=== PATIENT | female | born 1995 | race Two or more races ===

== ENCOUNTER 2021-12-30 01:11 | Inpatient (IN) | payer OTHER ==
[~2021-12-30] VITALS: Ht 152.4 cm; Wt 63.5 kg
--- NOTE | 2021-12-30 01:36 | NUR ---
COVID SWAB DONE AND SENT TO LAB
--- NOTE | 2021-12-30 01:39 | NUR ---
ER RECREATION LEADER @ BEDSIDE
--- NOTE | 2021-12-30 01:39 | NUR ---
SPOKE TO ROHIT AT POISON CONTROL WITH THE FOLLOWING RECOMMENDATIONS. RISK FOR SEIZURE >>>BENZO AND SEIZURE ORECAUTION RISK FOR QRS AND QT PROLONG>>> HOURLY EKG X 4-5 HOURS RISK FOR HYPOTENSION >>> FLUID NEEDS AT LEAST [address] HAWKINS MADE AWARE
[2021-12-30] MEDS ORDERED: ACTIVATED CHARCOAL 25 GM/120 ML TUBE ONE ×2 (01:45→01:52)
[2021-12-30] MEDS ORDERED: LORAZEPAM INJ 2 MG/ML VIAL ONE (01:46)
[2021-12-30] MEDS: ACTIVATED CHARCOAL 25 GM/120 ML TUBE PO ONE ×2 (01:54→02:00)
[2021-12-30] MEDS ORDERED: LORAZEPAM INJ 2 MG/ML VIAL IV ONE (02:00)
[2021-12-30] MEDS ORDERED: IV NS 0.9% 1,000 ML IV ONE (02:00)
--- NOTE | 2021-12-30 02:06 | NUR ---
NO BOWEL IRRIGATION NEEDED PER NIYA AT POISON CONTROL. Na BICAR FOR TREATMENT OF QRS PROLONGATION
--- NOTE | 2021-12-30 02:08 | NUR ---
URINE COLLECTED AND SENT TO LAB
[2021-12-30 02:15] LABS: BASOPHILS % (AUTO) 0.7 % (0.0-2.0); EOSINOPHILS % (AUTO) 0.9 % (0.0-6.0); HEMATOCRIT 41 % (33-45); HEMOGLOBIN 13.5 g/dL (11.5-14.8); LYMPHOCYTES # (AUTO) 1.5 K/uL (0.8-4.8); LYMPHOCYTES % (AUTO) 22.5 % (20.0-44.0); MEAN CORPUSCULAR HGB CONC 33 g/dl (31.0-36.0); MEAN CORPUSCULAR VOLUME 92 fL (82-100); MONOCYTES # (AUTO) 0.8 K/uL (0.1-1.30); MONOCYTES % (AUTO) 11.2 % (2.0-12.0); NEUTROPHILS # (AUTO) 4.4 K/uL (1.8-8.9); NEUTROPHILS % (AUTO) 64.7 % (43.0-81.0); PLATELET COUNT (AUTO) 313 K/uL (150-450); RED BLOOD CELL COUNT(AUTO) 4.47 MIL/uL (4.0-5.2); WHITE BLOOD COUNT (AUTO) 6.8 K/uL (4.3-11.0)
[2021-12-30 02:27] LABS: CALCIUM, SERUM 9.1 mg/dL (8.5-10.1); CREATININE 0.9 mg/dL (0.6-1.3); POTASSIUM 3.6 mmol/L (3.5-5.1)
[2021-12-30 02:36] LABS: ALBUMIN 4.1 g/dL (3.4-5.0); BILIRUBIN,DIRECT 0.1 mg/dL (0.0-0.2); BILIRUBIN,TOTAL 0.5 mg/dL (0.2-1.0); TOTAL PROTEIN, SERUM 7.8 g/dL (6.4-8.2)
[2021-12-30 03:08] LABS: BILIRUBIN,URINE NEGATIVE (NEGATIVE); COLOR,URINE YELLOW (YELLOW); LEUKOCYTE ESTERASE ,URINE NEGATIVE (NEGATIVE); NITRITE, URINE NEGATIVE (NEGATIVE); PROTEIN,URINE NEGATIVE (NEGATIVE); UGLUCOSE NEGATIVE (NEGATIVE); UROBILINOGEN,URINE 0.2 EU/dL (0.2)
--- NOTE | 2021-12-30 03:11 | NUR ---
AYOUB EPRP PAGED PER DR HAWKINS.
--- NOTE | 2021-12-30 05:00 | NUR ---
PATIENT AWAKE AND ALLERT, WITH BYFRIEND AT BEDSIDE. NO COMPLAINTS AT THIS TIME.
--- NOTE | 2021-12-30 07:30 | NUR ---
RECEVED PT FROM CARLOS ZIEGLER AWAKE uncoohernt fallow commend respiration spont and easy BOYFRIND AT BED
[2021-12-30] MEDS ORDERED: ONDANSETRON HCL/PF 4 MG/2 ML VIAL IVP PRN (08:00)
[2021-12-30] MEDS: PANTOPRAZOLE 40 MG TABLET.DR PO SCH (08:00)
[2021-12-30] MEDS ORDERED: MAG HYDROX/AL HYDROX/SIMETH 30 ML UDC PO PRN (08:00)
[2021-12-30] MEDS ORDERED: LORAZEPAM INJ 2 MG/ML VIAL IV PRN (08:00)
[2021-12-30] MEDS ORDERED: ACETAMINOPHEN 325 MG TABLET PO PRN (08:00)
--- NOTE | 2021-12-30 08:17 | NUR ---
PT ASLEEPY NO SOB
[2021-12-30] MEDS ORDERED: NORG1TAB10 PO (08:34)
[2021-12-30] MEDS ORDERED: BUPR75TA21 PO (08:34)
--- NOTE | 2021-12-30 08:55 | NUR ---
[facility] FOR [facility] FLOOR BED HOSPITLIST PROVIDER HERE AT BED
--- NOTE | 2021-12-30 10:01 | NUR ---
[facility] BED 325-2 RADHA ZIEGLER
--- NOTE | 2021-12-30 10:20 | NUR ---
RN NOTES RECEIVED REPORT FROM FIBI FROM ER AT 1020 AM.
--- NOTE | 2021-12-30 10:25 | NUR ---
HAND OFF ANI. CESAR ZIEGLER TO ROOM 325-2 VIA NAKIA HOWE BY SITTER ONE TO ONE SITSHARLA
--- NOTE | 2021-12-30 10:30 | NUR ---
RELATIONS LIAISON NOTES RECEIVED PATIENT FROM ER WITH NIK. PATIENT IS ALERT AND ORIENTED TIMES 1 . BOYFRIEND WITH PATIENT. NO PAIN NOTED. NO SOB NOTED. NO DISTRESS NOTED. IV ACCESS ON THE LEFT HAND INTACT. ALL THE BELONGINGS ACCOUNTED AND SIGNED FOR. VITAL SIGNS IN NORMAL RANGES. WILL CONTINUE TO MONITOR.
[2021-12-30] MEDS: IV NS 0.9% 1,000 ML IV PRN (10:56)
--- NOTE | 2021-12-30 18:59 | NUR ---
NUMERICAL ANALYSIS GROUP MANAGER CLOSING NOTES PATIENT AWAKE IN BED. NO PAIN NOTED. NO SOB NOTED. NO DISTRESS NOTED. BOYFRIEND AT THE BED SIDE. IV ACCESS ON THE L UPPER ARM GAUGE 22 INTACT RUNNING NS AT 75 ML/HR. PATIENT MORE ALERT THAN MORNING. AMBULATES WITH ASSISTANCE TO THE BATHROOM. ALL DUE MEDS GIVEN ORDERED. ALL SAFETY MEASURES IN PLACE. BED LOCKED IN THE LOWEST POSITION. CALL LIGHT AND TABLE IN REACH. PADDED SIDE RAILS FOR SEIZURE PRECAUTION. ON TELE MONITOR READING SR 90. WILL ENDORSE FOR EMILY.
--- NOTE | 2021-12-30 19:15 | NUR ---
RN OPENING NOTE RECEIVED PT IN BED AWAKE A/OX4. BOYFRIEND AT BEDSIDE. SITTER AT BEDSIDE. NO SIGNS OF RESPIRATORY DISTRESS OR SOB NOTED. NO C/O OF PAIN AT THIS TIME. RESTING COMFORTABLY. TELE READING SR. IV IN SEVERIANO 22G INFUSING NS AT 75ML/HR. SAFETY CHECKS IN PLACE: BED LOCKED, BED IN LOWEST POSITION, CALL LIGHT WITHIN REACH. WILL CONT PLAN OF CARE.
[2021-12-31 01:05] VITALS: BP 107/72
[2021-12-31] MEDS: IV NS 0.9% 1,000 ML IV PRN (01:51)
--- NOTE | 2021-12-31 06:33 | NUR ---
RN CLOSING NOTE, PT IN BED RESTING COMFORTABLY. A/OX4, CAN MAKE NEEDS KNOWN. PT CALM AND RELAXED. BOYFRIEND AT BEDSIDE. NO SIGNS OF RESPIRATORY DISTRESS OR SOB NOTED. TELE READING SR. IV SEVERIANO 22G INFUSING 75ML/HR OF NS. NO SIGNS OF SEIZURE ACTIVITY. SIDE RAILS PADDED FOR SAFETY. ALL NEEDS MET, ALL SCHEDULE MEDS GIVEN. SAFETY CHECKS IN PLACE: BED LOCKED, BED IN LOWEST POSITION, SIDE RAILS UP X2, CALL LIGHT WITHIN REACH. WILL ENDORSE TO DAY SHIFT NURSE FOR EMILY
[2021-12-31 06:40] LABS: BASOPHILS % (AUTO) 0.3 % (0.0-2.0); EOSINOPHILS % (AUTO) 0.4 % (0.0-6.0); HEMATOCRIT 37 % (33-45); HEMOGLOBIN 12.1 g/dL (11.5-14.8); LYMPHOCYTES # (AUTO) 1.1 K/uL (0.8-4.8); MEAN CORPUSCULAR HGB CONC 33 g/dl (31.0-36.0); MEAN CORPUSCULAR VOLUME 92 fL (82-100); MONOCYTES # (AUTO) 0.7 K/uL (0.1-1.30); NEUTROPHILS # (AUTO) 5.2 K/uL (1.8-8.9); NEUTROPHILS % (AUTO) 73.3 % (43.0-81.0); PLATELET COUNT (AUTO) 270 K/uL (150-450); RED BLOOD CELL COUNT(AUTO) 4.01 MIL/uL (4.0-5.2); WHITE BLOOD COUNT (AUTO) 7.1 K/uL (4.3-11.0)
[2021-12-31 07:02] LABS: CALCIUM, SERUM 8.8 mg/dL (8.5-10.1); CREATININE 0.9 mg/dL (0.6-1.3); MAGNESIUM 2.1 mg/dL (1.8-2.4); PHOSPHORUS 3.6 mg/dL (2.5-4.9); POTASSIUM 3.3 mmol/L (3.5-5.1)
--- NOTE | 2021-12-31 07:45 | NUR ---
RN OPENING NOTE PATIENT AWAKE IN BED RESTING. A/O X 4. BOYFRIEND AT BEDSIDE. NO PAIN NOTED AT THIS TIME. ON ROOM AIR, NO DISTRESS OR SHORTNESS OF BREATH NOTED. IV ACCESS SEVERIANO #22G, INTACT, PATENT AND FLUSHING WELL. FALL AND SAFETY MEASURES IN PLACE, BED IN LOW AND LOCK POSITION, CALL LIGHT AND TABLE WITHIN EASY REACH, SIDE RAILS UP X2. WILL CONTINUE TO MONITOR.
[2021-12-31 08:00] VITALS: BP 98/55
[2021-12-31] MEDS ORDERED: POTASSIUM CHLORIDE 20 MEQ TAB.PRT.SR PO ONE (08:00)
[2021-12-31] MEDS: PANTOPRAZOLE 40 MG TABLET.DR PO SCH (08:32)
[2021-12-31 16:00] VITALS: BP 119/76
--- NOTE | 2021-12-31 17:00 | NUR ---
RN JUN CANO FROM [place] CALLED SHE WAS REQUESTING TO PLEASE FAX PATIENT'S CRISIS TEAM CONSULT, FAX WAS SENT.
--- NOTE | 2021-12-31 17:39 | NUR ---
RN NOTE PATIENT KEPT COMPLAINING ABOUT HER IV, COMPLAINED THAT IT WAS PAINFUL. IV WAS REMOVED, PATIENT REFUSED TO GET A NEW IV, MULTIPLE ATTEMPTS WERE MADE.
--- NOTE | 2021-12-31 18:49 | NUR ---
RN CLOSING NOTE PATIENT AWAKE IN BED RESTING. A/O X 4. FAMILY AT BEDSIDE. NO PAIN NOTED AT THIS TIME. ON ROOM AIR, NO DISTRESS OR SHORTNESS OF BREATH NOTED. NO IV ACCESS, PATIENT REFUSED. FALL AND SAFETY MEASURES IN PLACE, BED IN LOW AND LOCK POSITION, CALL LIGHT AND TABLE WITHIN EASY REACH, SIDE RAILS UP X2. WILL ENDORSE TO SUGAR CONTROLLER.
--- NOTE | 2021-12-31 19:30 | NUR ---
RN OPENING NOTE PATIENT SITTING UP AT THE BED, FAMILY AT BEDSIDE. PATIENT ALSO HAS A 1:1 SITTER PRESENT AT BEDSIDE. PATIENT ON A 5150 HOLD D/T SI. PATIENT IS ON RA TOLERATING WELL, BREATHING EVEN AND UNLABORED. PATIENT DOES NOT REPORT ANY PAIN OR APPARENT DISTRESS. PATIENT CALM AT THIS TIME, ALTHOUGH SHE IS TEARY EYED. SAFETY MEASURES IN PLACE: BED LOCKED AND IN LOWEST POSITION, CALL LIGHT WITHIN REACH, SIDE RAILS UP.
[2021-12-31 20:00] VITALS: BP 132/67
--- NOTE | 2022-01-01 06:52 | NUR ---
RN CLOSING NOTE PATIENT IN BED, EYES CLOSED, EASILY AWAKENED. PATIENT HAS A 1:1 SITTER PRESENT AT BEDSIDE. PATIENT ON A 5150 HOLD D/T SI. PATIENT IS ON RA TOLERATING WELL, BREATHING EVEN AND UNLABORED. PATIENT DOES NOT REPORT ANY PAIN OR APPARENT DISTRESS. PATIENT CALM THROUGHOUT THE SHIFT. SAFETY MEASURES IN PLACE: BED LOCKED AND IN LOWEST POSITION, CALL LIGHT WITHIN REACH, SIDE RAILS UP. ALL NEEDS MET AND ATTENDED. ALL ORDERS CARRIED OUT. WILL ENDORSE TO DAY SHIFT NURSE FOR EMILY
--- NOTE | 2022-01-01 07:30 | NUR ---
MS RN OPENING NOTES PATIENT AWAKE IN BED. NO PAIN NOTED. NO SOB NOTED. NO DISTRESS NOTED. PATIENT REFUSED IV . PATIENT AMBULATES WITH ASSISTANCE TO THE BATHROOM. ALL SAFETY MEASURES IN PLACE. BED LOCKED IN THE LOWEST POSITION. CALL LIGHT AND TABLE IN REACH. PADDED SIDE RAILS FOR SEIZURE PRECAUTION. WILL CONTINUE TO MONITOR..
[2022-01-01] MEDS: PANTOPRAZOLE 40 MG TABLET.DR PO SCH (07:44)
--- NOTE | 2022-01-01 12:45 | NUR ---
KARLIE NOTES CALLED [facility] BY PHONE NUMBER [phone] AND GAVE REPORT AT [phone].
--- NOTE | 2022-01-01 13:30 | NUR ---
RN NOTES DISCHARGE PATIENT IN STABLE CONDITION WITH STABLE VITAL SIGNS. NO PAIN NOTED. NO SOB NOTED. ALL THE BELONGINGS ACCOUNTED AND SIGNED FOR. ALL THE DISCHARGE INSTRUCTIONS GIVEN TO THE PATIENT. PATIENT SIGNED THE TRANSFER AND DISCHARGE PAPERS. ALL NEEDS ATTENDED. PATIENT LEFT HOSPITAL AT 1345 IN STABLE CONDITION TO [facility]. AND CHARGE NURSE AWARE OF THE DISCHARGE.
== END 2022-01-01 15:25 | disposition short-term general hospital (02) | DRG 918 ==
LOC: ER 01:12 → TRANSITION 09:10 → TELE 10:05 → MED 12-31 14:43
PROVIDERS: ADMIT Internal Medicine; ATTEND Internal Medicine
DX: T43.291A Poisoning by other antidepressants, accidental (unintentional), initial encounter (principal); R45.851 Suicidal ideations; F33.1 Major depressive disorder, recurrent, moderate; Y92.89 Other specified places as the place of occurrence of the external cause; Y92.9 Unspecified place or not applicable; Z20.822 Contact with and (suspected) exposure to COVID-19; F41.9 Anxiety disorder, unspecified; F19.10 Other psychoactive substance abuse, uncomplicated; Z91.51 Personal history of suicidal behavior; F60.9 Personality disorder, unspecified
CPT/HCPCS: 36415; 80048-TC; 80076-TC; 83735-TC; 84100-TC; 84703-TC; 85025-TC; 87081-TC; C9803; G0378; G0480; J2060; J7030